=== PATIENT | female | born 1955 | race Caucasian/White ===

== ENCOUNTER 2017-04-09 07:56 | Day surgery (SDC) | payer OTHER ==
[2017-04-07 17:38] VITALS: BMI 44.6
[~2017-04-09 07:56] MED LIST: HYDROmorphone 1 MG/ML 1 ML SYRINGE IVP PRN; LACTATED RINGERS 1,000 ML IV SCH; MIDAZOLAM 2 MG/2 ML VIAL IV PRN; SCOPOLAMINE 1.5MG/72HR PATCH TRANSDERM ONE; ceFAZolin IN SWFI 2 GM/20 ML SYRINGE IVP ONE
[2017-04-09] MEDS ORDERED: LIDOCAINE 1% 20 ML VIAL (10MG/ML) FOR IV START INTRADERMA ONE (08:44)
[2017-04-09] MEDS: DEXAMETHASONE SOD PHOSPHATE 10 MG/ML 1 ML VIAL IV ONE ×2 (08:46→14:36)
[2017-04-09] MEDS: ONDANSETRON 4 MG/2 ML VIAL IVP ONE ×2 (08:47→14:36)
[2017-04-09] MEDS: HEPARIN SODIUM,PORCINE 5,000 UNIT/ML 1 ML VIAL SQ ONE ×2 (08:47→14:36)
[2017-04-09] MEDS ORDERED: BUPIVACAINE-EPI 0.5%-1:200,000 10 ML VIAL SQ ONE ×2 (09:05)
[2017-04-09] MEDS ORDERED: GLYCOPYRROLATE 0.2 MG/ML 2 ML VIAL ONE (09:13)
[2017-04-09] MEDS ORDERED: fentaNYL (PF) 50 MCG/ML 2 ML AMP ONE (09:13)
[2017-04-09] MEDS ORDERED: LIDOCAINE 1% INJ 10MG/ML (20 ML MDV) ONE (09:13)
[2017-04-09] MEDS ORDERED: ePHEDrine SULFATE/0.9% NACL/PF 50 MG/5 ML SYRINGE IV ONE (09:13)
[2017-04-09] MEDS ORDERED: MIDAZOLAM 2 MG/2 ML VIAL ONE (09:13)
[2017-04-09] MEDS ORDERED: ROCURONIUM BROMIDE 10 MG/ML 10 ML VIAL IV ONE (09:13)
[2017-04-09] MEDS ORDERED: PROPOFOL 10 MG/ML 20 ML VIAL IV ONE (09:13)
[2017-04-09] MEDS ORDERED: SUCCINYLCHOLINE CHLORIDE 100 MG/5 ML SYR IV ONE (09:13)
[2017-04-09] MEDS ORDERED: HYDROmorphone (PF) 1 MG/ML ONE (09:13)
[2017-04-09] MEDS ORDERED: NEOSTIGMINE 1 MG/ML 10 ML VIAL ONE (09:13)
[2017-04-09] MEDS ORDERED: KETAMINE 10 MG/ML 20 ML VIAL ONE (09:13)
[2017-04-09] MEDS ORDERED: KETOROLAC 30 MG/ML 1 ML VIAL ONE (09:13)
[2017-04-09] MEDS ORDERED: LACTATED RINGERS 1,000 ML IV ONE (10:00)
[2017-04-09] MEDS ORDERED: IOHEXOL 350 MG/ML 50ML BOTTLE INJ ONE (10:36)
[2017-04-09] MEDS ORDERED: HYDROmorphone 1 MG/ML 1 ML SYRINGE IVP PRN (12:10)
--- NOTE | 2017-04-09 12:28 | P.OP ---
Date of Procedure: 04/09/17 Preoperative Diagnosis: Chronic calculous cholecystitis Morbid obesity BMI 44.6 Postoperative Diagnosis: Same Procedure(s) Performed: Laparoscopic cholecystectomy Intraoperative cholangiogram Anesthesia: ANGELA Surgeon: Thea Morales Pathology: other Condition: stable Disposition: PACU Indications for Procedure: 61 years old female presents with right upper quadrant pain. Ultrasound showed gallstones. Informed consent obtained and she elected to undergo laparoscopic cholecystectomy possible open. The risks, benefits and potential complications including bleeding, infection, and bile duct injury were discussed and patient elected to undergo the procedure. Operative Findings: Acute on chronic cholecystitis Extensive scarring along the infundibulum of the gallbladder Cystic duct and cystic artery were identified and clipped Description of Procedure: The patient was brought to the operating room and placed in supine position with both arms out. General anesthesia with endotracheal intubation was performed as per anesthesia team. Chlorhexidine was used to prep the abdomen followed by application of sterile drapes. A timeout was performed to verify correct patient and correct procedure. Patient was confirmed to receive perioperative IV antibiotics , heparin 5000 units subcutaneous injection and bilateral SCDs were placed. A 5 mm skin incision was made below the left costal margin at the anterior axillary line. A Veress needle was inserted and pneumoperitoneum was established to a pressure of 15 mmHg. A 5 mm Optiview trocar was loaded on a 5 mm 30 laparoscope and the peritoneal cavity was entered under direct vision using the Optiview technique. Additional 5 mm trocar was placed in the supraumbilical location and two 5 mm trocars along the right subcostal margin. The left 5 mm trocar was upsized to 10mm. The patient was placed in reverse Trendelenburg with right side up. The fundus of the gallbladder was grasped with an atraumatic grasper and was retracted over the dome of the liver. The infundibulum was grasped with an atraumatic grasper and retracted towards the pelvis to expose the Calot's triangle. Additional 5 mm trocar was placed in the left upper quadrant to retract the stomach and improve exposure. Lateral and medial peritoneal attachment of the gallbladder bladder was dissected. There was dense additions between infundibulum of the gallbladder which was dissected and divided between clips. There was no definite lumen identified. Circumferential dissection was carried out around the cystic artery and the cystic duct to obtain adequate length for clip application. All the surrounding fibrofatty tissue were removed. Critical view was obtained with cystic duct and cystic artery as the only two structures entering the gallbladder. The gallbladder was clamped just proximal to the infundibulum. An intraoperative cholangiogram was attempted using balloon catheter device. An opening was made in the gallbladder close to the infundibulum and balloon catheter was inserted and inflated. Intra-Op cholangiogram was performed. There was gross spillage of contrast and proper anatomy could not be delineated. Hence the cholangiogram was limited and supported Two clips were applied on the patient's side and one on the specimen side on the cystic duct first followed by the cystic artery. Endoshears were used to divide the cystic duct and the cystic artery. The gallbladder was taken off the liver bed using a L-hook. It was placed in an endocatch specimen bag and removed through the 10mm port. The gallbladder was passed off as a specimen. The abdominal cavity was inspected. The clips on the cystic duct and cystic artery stump were intact and no bleeding noted from the liver bed. All the trocar sites were examined and no evidence of bleeding. The 10mm port site was closed with two transfascial sutures of 0 Vicryl using a Tripp Hilaria device. The pneumoperitoneum was evacuated and all the trocars were removed. Local anesthetic was infiltrated along the trocar sites and incisions were closed using 4-0 Monocryl followed by application of Dermabond skin glue. The sponge, instrument and needle count were correct x2. Patient was extubated and taken to post anesthesia care unit in stable condition.
--- NOTE | 2017-04-09 12:57 | FL ---
Fluoroscopy INDICATION: Pain FINDINGS: Fluoroscopy time: 58 seconds. Images obtained: 1. IMPRESSIONS: 1. Documentation of fluoroscopy.
[2017-04-09] MEDS: HEPARIN SODIUM,PORCINE 5,000 UNIT/ML 1 ML VIAL SQ SCH (16:41)
[2017-04-09] MEDS ORDERED: CALCIUM CARBONATE 500 MG CHEWABLE PO PRN (21:09)
[2017-04-09] MEDS: HYDROcodone/APAP 5-325MG 1 EACH TAB PO PRN (21:26)
[2017-04-09] MEDS: PANTOPRAZOLE 40 MG/10 ML VIAL IVP SCH (21:52)
[2017-04-10 00:23] VITALS: RESP 18
[2017-04-10] MEDS: HEPARIN SODIUM,PORCINE 5,000 UNIT/ML 1 ML VIAL SQ SCH (00:24)
[2017-04-10] MEDS: HYDROcodone/APAP 5-325MG 1 EACH TAB PO PRN (04:22)
--- NOTE | 2017-04-10 07:06 | P.PN ---
Subjective Progress Note Date: 04/10/17 Patient is a 61-year-old white female who is postop day #1 from a laparoscopic cholecystectomy. The patient at this time has no complaints. She has a J Luis -Dumont drain in place and this is serous drainage, 15 mL recorded. The patient has tolerated her diet. We are waiting for morning labs prior to discharge. Objective - Vital Signs Vital signs: Vital Signs Temp 97.1 F L 04/10/17 00:18 Pulse 86 04/10/17 00:18 Resp 18 04/10/17 00:18 BP 97/52 04/10/17 00:18 Pulse Ox 98 04/10/17 00:18 Intake & Output 04/09/17 04/10/17 04/10/17 18:59 06:59 18:59 Intake Total 2130 Output Total 10 15 Balance 2120 -15 Weight 117.934 kg Intake: IV 1650 Oral 480 Output: Drainage 15 Right Upper Abdomen 15 Estimated Blood Loss 10 Other: # Voids 1 - Constitutional General appearance: Present: morbidly obese - Respiratory Details: Slightly decreased breath sounds at bases bilaterally - Cardiovascular Heart sounds: normal: S1, S2 - Gastrointestinal Gastrointestinal Comment(s): Incisions clean and dry ELIS drain right upper quadrant serosanguineous drainage General gastrointestinal: Present: decreased bowel sounds - Psychiatric Psychiatric: Present: A&O x's 3, appropriate affect, intact judgment & insight Assessment and Plan Plan: Impression/plan: 1. 61 year-old white female postop day #1 laparoscopic cholecystectomy 2. Awaiting morning of laboratory studies prior to discharge 3. Probable discharge home later today
[2017-04-10 07:07] LABS: Basophils % (A) 0 %; CH 28.8; CHCM 31.8; Eosinophils % (A) 0 %; HCT 32.7 % (34.0-46.0); HGB 10.5 gm/dL (11.4-16.0); Luc # (Auto) 0.12; Luc % (Auto) 2; Lymphocytes # (A) 1.6 k/uL (1.0-4.8); Lymphocytes % (A) 21 %; MCH 29.2 pg (25.0-35.0); MCHC 32.1 g/dL (31.0-37.0); MCV 90.8 fL (80.0-100.0); Mean Platelet Volume 8.3; Monocytes # (A) 0.6 k/uL (0-1.0); Monocytes % (A) 8 %; Neutrophils # (A) 5.2 k/uL (1.3-7.7); Neutrophils % (A) 69 %; RBC 3.61 m/uL (3.80-5.40); RDW 13.5 % (11.5-15.5); WBC 7.6 k/uL (3.8-10.6); WBC (Perox) 7.85
--- NOTE | 2017-04-10 07:08 | P.DS ---
Providers Attending physician: Thea Morales Primary care physician: Prem Lee Plan - Discharge Summary Discharge Rx Participant: Yes New Discharge Prescriptions: New Docusate [Colace] 100 mg PO BID #30 capsule HYDROcodone/APAP 5-325MG [[place] 5-325] 1 tab PO Q4HR PRN #20 tab PRN Reason: Pain No Action Mirabegron [Myrbetriq] 25 mg PO DAILY HYDROcodone/APAP 5-325MG [[place] 5] 1 each PO Q6HR PRN PRN Reason: Pain Ezetimibe [Zetia] 10 mg PO HS Cholecalciferol [Vitamin D3] 1,000 unit PO DAILY@1200 Omeprazole [PriLOSEC] 20 mg PO AC-BRKFST Losartan Potassium [Cozaar] 100 mg PO DAILY Magnesium 500 mg PO DAILY Ibuprofen [Motrin] 800 mg PO TID PRN PRN Reason: Pain Ciprofloxacin HCl [Cipro] 250 mg PO TID PRN PRN Reason: RECURRENT UTI Gabapentin [Neurontin] 1 tab PO TID Acetaminophen/Diphenhydramine [Tylenol PM Extra Strength] 1 each PO HS PRN PRN Reason: Pain Discharge Medication List Cholecalciferol [Vitamin D3] 1,000 unit PO DAILY@1200 03/14/15 [History] Ezetimibe [Zetia] 10 mg PO HS 03/14/15 [History] HYDROcodone/APAP 5-325MG [[place] 5] 1 each PO Q6HR PRN 03/14/15 [History] Losartan Potassium [Cozaar] 100 mg PO DAILY 03/14/15 [History] Magnesium 500 mg PO DAILY 03/14/15 [History] Mirabegron [Myrbetriq] 25 mg PO DAILY 03/14/15 [History] Omeprazole [PriLOSEC] 20 mg PO AC-BRKFST 03/14/15 [History] Ciprofloxacin HCl [Cipro] 250 mg PO TID PRN 04/07/17 [History] Ibuprofen [Motrin] 800 mg PO TID PRN 04/07/17 [History] Acetaminophen/Diphenhydramine [Tylenol PM Extra Strength] 1 each PO HS PRN 04/09 [History] Docusate [Colace] 100 mg PO BID #30 capsule 04/09/17 [Rx] Gabapentin [Neurontin] 1 tab PO TID 04/09/17 [History] HYDROcodone/APAP 5-325MG [[place] 5-325] 1 tab PO Q4HR PRN #20 tab 04/09/17 [Rx] Follow up Appointment(s)/Referral(s): Thea Morales MD [STAFF PHYSICIAN] - 04/20/17 10:40 am Activity/Diet/Wound Care/Special Instructions: OK to shower . No soaking bath. No heavy lifting more than 10 lbs for 6 weeks post surgery. No driving while taking narcotics for pain. May use ice packs for local pain relief Take Motrin 400 mg po TID after meals if pain is not controlled Use incentive spireometry 10 times an hour while awake ELIS drain care teachings Get lab drawn one day before the office appointment - LFTs
[2017-04-10 07:22] LABS: Calcium 9.3 mg/dL (8.4-10.2); Potassium 4.2 mmol/L (3.5-5.1); Total Bilirubin 0.3 mg/dL (0.2-1.3)
[2017-04-10 09:10] VITALS: BP 103/62; PULSE 82; TEMP 97.5
[2017-04-10] MEDS: PANTOPRAZOLE 40 MG/10 ML VIAL IVP SCH (09:10)
== END 2017-04-10 09:38 | disposition home or self-care (01) ==
LOC: OR 07:56 → 6PED 11:52 → OR 04-10 09:38
PROVIDERS: ATTEND Surgery
DX: K80.10 Calculus of gallbladder with chronic cholecystitis without obstruction (principal); K21.9 Gastro-esophageal reflux disease without esophagitis; E66.01 Morbid (severe) obesity due to excess calories; Z68.41 Body mass index [BMI] 40.0-44.9, adult; Z80.0 Family history of malignant neoplasm of digestive organs; E78.5 Hyperlipidemia, unspecified; F41.9 Anxiety disorder, unspecified; I10 Essential (primary) hypertension; J44.9 Chronic obstructive pulmonary disease, unspecified; Z87.891 Personal history of nicotine dependence; M19.90 Unspecified osteoarthritis, unspecified site; L65.9 Nonscarring hair loss, unspecified; Z79.2 Long term (current) use of antibiotics; Z79.899 Other long term (current) drug therapy; Z88.8 Allergy status to other drugs, medicaments and biological substances
CPT/HCPCS: 93005; 88304; 80053; 85025; 74300; 47563; J2250; J1644 ×2; J1100; J2710; J0690; J2405; J2001; J3010; J1885; J1170; J0330; J2704; Q9967; C9113

== ENCOUNTER → 2017-04-26 | Outpatient (CLI) | payer OTHER ==
[2017-04-26 15:04] LABS: CH 29.2; CHCM 32.7; HCT 32.6 % (34.0-46.0); HDW 2.45; HGB 10.8 gm/dL (11.4-16.0); MCH 29.7 pg (25.0-35.0); MCV 89.9 fL (80.0-100.0); Mean Platelet Volume 8.1; RBC 3.63 m/uL (3.80-5.40); RDW 13.9 % (11.5-15.5); WBC 6.3 k/uL (3.8-10.6)
[2017-04-26 15:32] LABS: Bilirubin, Delta 0.2 mg/dL (0.0-0.2); Calcium 9.7 mg/dL (8.4-10.2); Total Bilirubin 0.4 mg/dL (0.2-1.3); Total Protein 6.6 g/dL (6.3-8.2)
== END | disposition home or self-care (01) ==
LOC: LABWHC1 14:39
PROVIDERS: ATTEND Surgery
DX: D64.9 Anemia, unspecified (principal)
CPT/HCPCS: 36415; 80053; 82248; 85027

== ENCOUNTER 2017-09-29 08:49 | Day surgery (SDC) | payer OTHER ==
[2017-09-28 08:21] VITALS: BMI 48.0
--- NOTE | 2017-09-29 08:41 | P.GSHP ---
History of Present Illness H&P Date: 09/29/17 CHIEF COMPLAINT: Colon screen HISTORY OF PRESENT ILLNESS: The patient is a 61-year-old female who presents for colon screen. Lower endoscopy was offered for further evaluation and management. PAST MEDICAL HISTORY: Please see list. PAST SURGICAL HISTORY: Please see list. MEDICATIONS: Please see list. ALLERGIES: Please see list. SOCIAL HISTORY: No illicit drug use FAMILY HISTORY: No reports of Crohn disease or ulcerative colitis. REVIEW OF ORGAN SYSTEMS: CONSTITUTIONAL: No reports of fevers or chills. PHYSICAL EXAM: VITAL SIGNS: Stable GENERAL: Well-developed pleasant in no acute distress. HEENT: No scleral icterus. Extraocular movements grossly intact. Moist buccal mucosa. NECK: Supple without lymphadenopathy. CHEST: Unlabored respirations. Equal bilateral excursions. CARDIOVASCULAR: Regular rate and rhythm. Distal 2+ pulses. ABDOMEN: Soft, nontender, nondistended. MUSCULOSKELETAL: No clubbing, cyanosis, or edema. ASSESSMENT: 1. Colon screen. PLAN: 1. Recommend proceeding with a lower endoscopy Past Medical History Past Medical History: Fibromyalgia, GERD/Reflux, Hyperlipidemia, Hypertension, Mitral Valve Prolapse (MVP), Osteoarthritis (OA) Additional Past Medical History / Comment(s): hx. recurrent UTI's, hx heart murmer, hx MPV "years ago","weat urethra" History of Any Multi-Drug Resistant Organisms: None Reported Past Surgical History: Cholecystectomy, Orthopedic Surgery Additional Past Surgical History / Comment(s): left knee arthroscopy, pain clinic procedures Past Anesthesia/Blood Transfusion Reactions: Postoperative Nausea & Vomiting ( PONV) Smoking Status: Former smoker - Past Family History Mother Family Medical History: Cancer Medications and Allergies Home Medications Medication Instructions Recorded Confirmed Type Cholecalciferol [Vitamin D3] 1,000 unit PO DAILY 03/14/15 09/28/17 History Ezetimibe [Zetia] 10 mg PO HS 03/14/15 09/28/17 History Losartan Potassium [Cozaar] 100 mg PO DAILY 03/14/15 09/28/17 History Mirabegron [Myrbetriq] 25 mg PO DAILY 03/14/15 09/28/17 History Omeprazole [PriLOSEC] 20 mg PO AC-BRKFST 03/14/15 09/28/17 History Ciprofloxacin HCl [Cipro] 250 mg PO TID PRN 04/07/17 09/28/17 History Ibuprofen [Motrin] 800 mg PO TID PRN 04/07/17 09/28/17 History Gabapentin [Neurontin] 1 tab PO TID PRN 04/09/17 09/28/17 History Allergies Allergy/AdvReac Type Severity Reaction Status Date / Time niacin AdvReac Severe " FELT Verified 09/28/17 08:12 LIKE SKIN WAS ON FIRE Abulnww-Osg-Trh Reductase AdvReac Mild muscle Verified 09/28/17 08:12 Inhibitor cramps
[~2017-09-29 08:49] MED LIST changes: -HYDROmorphone 1 MG/ML 1 ML SYRINGE IVP PRN; +LIDOCAINE 1% 20 ML VIAL (10MG/ML) FOR IV START INTRADERMA PRN; -MIDAZOLAM 2 MG/2 ML VIAL IV PRN; -SCOPOLAMINE 1.5MG/72HR PATCH TRANSDERM ONE; -ceFAZolin IN SWFI 2 GM/20 ML SYRINGE IVP ONE
[2017-09-29 09:34] VITALS: RESP 16; TEMP 97.8
[2017-09-29] MEDS ORDERED: ONDANSETRON 4 MG/2 ML VIAL IVP ONE (09:58)
[2017-09-29] MEDS ORDERED: PROPOFOL 10 MG/ML 20 ML VIAL IV ONE (10:02)
[2017-09-29] MEDS ORDERED: LIDOCAINE 1% INJ 10MG/ML (20 ML MDV) ONE (10:02)
--- NOTE | 2017-09-29 10:20 | P.PCN ---
Date of Procedure: 09/29/17 Description of Procedure: PREOPERATIVE DIAGNOSIS: Colonoscopy screening. Family history of colon cancer POSTOPERATIVE DIAGNOSIS: Colonoscopy screening. Diverticulosis, sigmoid Family history colon cancer OPERATION: Colonoscopy to the ileocecal valve and appendiceal orifice. SURGEON: Lorraine Reyes MD. ANESTHESIA: MAC. INDICATIONS: The patient is a 61-year-old female who presents for colonoscopy screening. Last colonoscopy was over 14 years ago. Benefits and risks were described and informed consent was obtained. DESCRIPTION OF PROCEDURE: The patient had undergone Gatorade, MiraLAX and Dulcolax prep. She had been brought into the operating room and laid in the left lateral decubitus position. After adequate intravenous sedation, the rectum was examined with 2% lidocaine jelly. No external hemorrhoids were encountered. The rectal tone was within normal limits. No lesions were palpated in the rectal vault. An Olympus colonoscope was advanced until the ileocecal valve and appendiceal orifice were clearly viewed. The prep was excellent with clear visualization of the mucosal folds. The scope was removed with visualization of each mucosal fold. Sigmoid diverticulosis diverticulosis was encountered. No colonic polyps were found. No evidence of focal colitis was found. Retroflexion of the scope demonstrated no internal hemorrhoids. The colon was desufflated. The patient had tolerated the procedure well. Withdrawal time was over 6 minutes. FINDINGS: No internal hemorrhoids. No external prolapsed hemorrhoids. No arteriovenous malformations. No adenomatous polyps. No focal colitis. Severe sigmoid diverticulosis. RECOMMENDATIONS: Lower endoscopy in 5 years per screening guidelines, 2022 Plan - Discharge Summary New Discharge Prescriptions: No Action Mirabegron [Myrbetriq] 25 mg PO DAILY Ezetimibe [Zetia] 10 mg PO HS Cholecalciferol [Vitamin D3] 1,000 unit PO DAILY Omeprazole [PriLOSEC] 20 mg PO AC-BRKFST Losartan Potassium [Cozaar] 100 mg PO DAILY Ibuprofen [Motrin] 800 mg PO TID PRN PRN Reason: Pain Ciprofloxacin HCl [Cipro] 250 mg PO TID PRN PRN Reason: RECURRENT UTI Gabapentin [Neurontin] 1 tab PO TID PRN PRN Reason: sciatic nerve pain Discharge Medication List Cholecalciferol [Vitamin D3] 1,000 unit PO DAILY 03/14/15 [History] Ezetimibe [Zetia] 10 mg PO HS 03/14/15 [History] Losartan Potassium [Cozaar] 100 mg PO DAILY 03/14/15 [History] Mirabegron [Myrbetriq] 25 mg PO DAILY 03/14/15 [History] Omeprazole [PriLOSEC] 20 mg PO AC-BRKFST 03/14/15 [History] Ciprofloxacin HCl [Cipro] 250 mg PO TID PRN 04/07/17 [History] Ibuprofen [Motrin] 800 mg PO TID PRN 04/07/17 [History] Gabapentin [Neurontin] 1 tab PO TID PRN 04/09/17 [History]
[2017-09-29 10:45] VITALS: BP 107/60; PULSE 85
== END 2017-09-29 10:53 | disposition home or self-care (01) ==
LOC: ORWHC2ENDO 08:49
PROVIDERS: ATTEND Surgery Plastic and Reconstructive Surgery
DX: Z12.11 Encounter for screening for malignant neoplasm of colon (principal); K57.30 Diverticulosis of large intestine without perforation or abscess without bleeding; K21.9 Gastro-esophageal reflux disease without esophagitis; Z80.0 Family history of malignant neoplasm of digestive organs; I10 Essential (primary) hypertension; E78.5 Hyperlipidemia, unspecified; M79.7 Fibromyalgia; E66.01 Morbid (severe) obesity due to excess calories; Z68.42 Body mass index [BMI] 45.0-49.9, adult; I34.1 Nonrheumatic mitral (valve) prolapse; M19.90 Unspecified osteoarthritis, unspecified site; Z87.891 Personal history of nicotine dependence; Z79.899 Other long term (current) drug therapy; Z88.8 Allergy status to other drugs, medicaments and biological substances
CPT/HCPCS: J2405; J2001; J2704; G0105; 45378

== ENCOUNTER → 2018-03-15 | Outpatient (CLI) | payer OTHER | END | disposition home or self-care (01) | LOC: LABPAT 13:02 | PROVIDERS: ATTEND Orthopaedic Surgery | DX: Z01.812 Encounter for preprocedural laboratory examination (principal) | CPT/HCPCS: 87070 ==

== ENCOUNTER → 2018-04-07 | Outpatient (CLI) | payer OTHER ==
--- NOTE | 2018-04-07 11:02 | XR ---
EXAMINATION TYPE: XR chest 2V DATE OF EXAM: 04/07/2018 COMPARISON: NONE HISTORY: Bronchopneumonia 4 days ago. Presurgical study. TECHNIQUE: Frontal and lateral views of the chest are obtained. FINDINGS: There is no focal air space opacity, pleural effusion, or pneumothorax seen. The cardiac silhouette size is mildly enlarged. The osseous structures are intact. IMPRESSION: Mild cardiomegaly without suspicious acute pulmonary process.
== END | disposition home or self-care (01) ==
LOC: RADXRMAIN 10:40
PROVIDERS: ATTEND Family Medicine
DX: Z01.818 Encounter for other preprocedural examination (principal); I51.7 Cardiomegaly
CPT/HCPCS: 71046

== ENCOUNTER → 2019-03-13 | Outpatient (CLI) | payer MEDICARE, OTHER | END | disposition home or self-care (01) | LOC: LABWHC1 08:11 | PROVIDERS: ATTEND Orthopaedic Surgery | DX: Z01.812 Encounter for preprocedural laboratory examination (principal); M16.11 Unilateral primary osteoarthritis, right hip | CPT/HCPCS: 87070 ==

== ENCOUNTER 2019-03-21 07:22 | Inpatient (IN) | payer MEDICARE, OTHER ==
--- NOTE | 2019-03-20 09:37 | HP ---
HISTORY AND PHYSICAL CHIEF COMPLAINT: Right hip pain. HISTORY OF PRESENT ILLNESS: Patient is a 63-year-old retired female who presents with progressive right hip pain secondary to osteoarthrosis despite conservative measures. She notes it limits her activities. She does use a cane. PAST MEDICAL HISTORY: Significant for arthritis, reflux disease, hypercholesterolemia, renal disease, COPD. PAST SURGICAL HISTORY: Significant for previous left total hip. CURRENT MEDICATIONS: 1. Losartan. 2. Zetia. 3. Tylenol. She has allergies to STATINS. FAMILY HISTORY: Significant for cancer and heart disease. SOCIAL HISTORY: Negative for current tobacco or alcohol use. REVIEW OF SYSTEMS: A 16-point review of systems otherwise reviewed and is noncontributory. PHYSICAL EXAMINATION: Patient is approximately 5 foot 4, 250 pounds of endomorphic habitus. HEENT exam is nonfocal. Neck is supple. She has passive motion of the right hip, flexion 70 degrees, external rotation with hip flex 40 degrees, internal rotation -10 degrees with pain. She has approximately 0.5 cm shortening of the right lower extremity compared to the left. Her distal neurovascular exam appears intact in the right lower extremity. AP of the pelvis obtained in the office show severe right hip osteoarthrosis with bone- on-bone changes. IMPRESSION: 1. Right hip severe osteoarthrosis. 2. Obesity. RECOMMENDATIONS: I talked to the patient at length regarding her condition and treatment options. At this point, she is quite symptomatic and opts to proceed with surgery. We will plan to proceed with right total hip arthroplasty utilizing a lateral approach. Risks and benefits were discussed at length in layman's terms. We will institute DVT prophylaxis postoperatively. The patient underwent preoperative medical evaluation by Dr. Lee. MMODL / IJN: [id number] /
[~2019-03-21 07:22] MED LIST changes: +ACETAMINOPHEN TAB 500 MG TAB PO ONE; +DEXAMETHASONE SOD PHOSPHATE 10 MG/ML 1 ML VIAL IV ONE; -LACTATED RINGERS 1,000 ML IV SCH; +MELOXICAM 7.5 MG TAB PO ONE; +ONDANSETRON 4 MG/2 ML VIAL IVP ONE; +TRANEXAMIC ACID 1,000 MG in SODIUM CHLORIDE 0.9% 100 ML IVPB ONE; +ceFAZolin 3 GM in SODIUM CHLORIDE 0.9% 100 ML IVPB ONE; +fentaNYL (PF) 50 MCG/ML 2 ML AMP IV PRN
[2019-03-21] MEDS: LACTATED RINGERS 1,000 ML IV SCH ×2 (08:08→15:10)
[2019-03-21] MEDS ORDERED: HYDROmorphone (PF) 1 MG/ML ONE (08:37)
[2019-03-21] MEDS ORDERED: PROPOFOL 10 MG/ML 20 ML VIAL IV ONE (08:37)
[2019-03-21] MEDS ORDERED: TRANEXAMIC ACID 1,000 MG/10 ML VIAL ONE (08:37)
[2019-03-21] MEDS ORDERED: fentaNYL (PF) 50 MCG/ML 2 ML AMP ONE (08:37)
[2019-03-21] MEDS ORDERED: SODIUM CHLORIDE 0.9% 100 ML BAG ONE (08:37)
[2019-03-21] MEDS ORDERED: KETAMINE 10 MG/ML 20 ML VIAL ONE (08:37)
[2019-03-21] MEDS ORDERED: MIDAZOLAM 2 MG/2 ML VIAL ONE (08:37)
[2019-03-21] MEDS ORDERED: PHENYLEPHRINE-0.9% NACL SYG 1 MG/10 ML SYRINGE ONE (08:37)
[2019-03-21] MEDS ORDERED: ceFAZolin 3,000 MG in SODIUM CHLORIDE 0.9% IRRIGATIO 3,000 ML IRRIGATION ONE (09:21)
[2019-03-21] MEDS ORDERED: LACTATED RINGERS 1,000 ML IV ONE (09:52)
[2019-03-21] MEDS ORDERED: MAGNESIUM HYDROXIDE 2,400 MG/10 ML CUP PO PRN (10:29)
[2019-03-21] MEDS ORDERED: ONDANSETRON 4 MG/2 ML VIAL IVP PRN (10:29)
[2019-03-21] MEDS ORDERED: NALOXONE 0.4 MG/ML 1 ML VIAL IV PRN (10:29)
[2019-03-21] MEDS ORDERED: HYDROmorphone 0.5 MG/0.5 ML SYRINGE IVP PRN (10:29)
[2019-03-21] MEDS ORDERED: HYDROcodone/APAP 5-325MG 1 EACH TAB PO PRN (10:29)
[2019-03-21] MEDS ORDERED: ACETAMINOPHEN TAB 325 MG TAB PO PRN (10:29)
--- NOTE | 2019-03-21 10:54 | P.OP ---
Date of Procedure: 03/21/19 Preoperative Diagnosis: Right hip severe osteoarthrosis Postoperative Diagnosis: Same Procedure(s) Performed: Right total hip arthroplastypress-fitlateral approach Implants: Depuy Corail size 10 standard press-fit collared femoral stem, 36 mm +1-1/2 cobalt chrome femoral head, 54 mm [place] acetabular shell with neutral polyethylene liner. Anesthesia: spinal Surgeon: Migel Camargo Supervisor Lending Activities #1: Piyush Bowman Estimated Blood Loss (ml): 200 Pathology: other (Femoral head) Condition: stable Disposition: PACU Indications for Procedure: The patient's a 63-year-old female who presents with progressive right hip pain secondary to osteoarthrosis despite conservative measures. A discussion of the risks and benefits of operative intervention versus continued conservative measures was made with the patient. She opted to proceed with surgery. Operative risks to include infection, neurovascular injury, development of blood clots, possible fracture, possible leg length discrepancy, possible instability and need for subsequent procedures was discussed. Informed consent was obtained. Operative Findings: As below Description of Procedure: The patient was brought to the operating room, and after induction of spinal anesthesia was placed in a lateral decubitus position. The bony prominences were appropriately padded. The pelvis was stable perpendicular to the floor with a pegboard. The right lower extremity was prepped and draped in normal fashion. A 12 cm incision was then made centered over the greater trochanter extending superiorly to level the ASIS and distally in line with the femoral shaft. The skin and subcutaneous tissues were divided sharply. Electrocautery was used for hemostasis. The fascia ronald and gluteus ayla fascia was split in line with the skin incision. The muscle fibers were bluntly dissected proximally. A self-retaining retractor was placed. The anterior and posterior margins of the gluteus medius muscles identified and the anterior two thirds was detached from the greater trochanter with electrocautery. The gluteus minimus tendon was identified and detached in a similar fashion. A wide capsulotomy was performed. The femoral neck fracture was identified in the lower neck cut was made approximately 1 1/2 cm above the level of the lesser trochanter with a sagittal saw at a 45 to the shaft. The head was then extracted with a corkscrew. Attention was then paid towards preparing the acetabular. Anterior and posterior retractors were placed. The remaining capsular labral tissues debrided sharply clearly defining the acetabular margins. Began reaming with a 47 mm reamer taking care to initially medialize, then reaming at 45 of abduction and 20 of anteversion. Sequential reaming is performed up to 53 mm. This was down to bleeding bony surface. A trial 54 mm acetabular shell was inserted at 45 of abduction and 20 of anteversion. This was fully seated. There was good rim fit and stability. I did place a 6.5 mm x 25 mm cancellus screw posterior superior with good purchase. A neutral polyethylene liner was then impacted. Care taken to avoid any soft tissue interposition. Attention was then paid towards preparing the proximal femur. A box chisel was used to open the metaphyseal region. A canal finder was used to find the femoral canal. Sequential broaching was performed up to a size 10. This is placed in 15 of anteversion with the leg perpendicular floor judging off the trans-epicondylar axis. There is good rotational stability. A calcar mill was used to fashion the medial calcar. A trial standard neck along with a 36 mm +1.5 trial head was placed. The hip was gently reduced. It was taken through range of motion. I felt to be stable in flexion and extension with internal and external rotation. I felt there was adequate sikh of soft tissue tension. The hip was gently dislocated. The trial components removed. Pulsatile lavage was utilized. The final size 10 standard collared femoral stem was inserted again with the leg perpendicular to the floor in 15 of anteversion. Again there was good rotational stability. A 36 mm + 1.5 cobalt chrome femoral head was gently impacted. The hip was gently reduced. Again it was taken through motion and felt to be stable in flexion and extension with internal and external rotation. Pulsatile lavage was again utilized. With the leg in abduction the gluteus minimus and medius tendons reattached to the greater trochanter with #2 Ethibond suture. There was minimal drainage therefore a deep drain was not placed. The fascia ronald and gluteus ayla fascia was closed with #2 Ethibond suture. The subcutaneous tissues were reapproximated interrupted 2-0 Vicryl sutures. The skin was reapproximated with 3-0 subcuticular strata fix suture. Skin tape and adhesive was applied. A sterile dressing was applied. The patient was awoken from sedation and transferred to recovery room in good condition. Blood loss was estimated 200 mL. No complications were incurred. Sponge and needle counts were correct in the case. Doug LEHMAN assisted during the major composes case to include exposure, implantation, and closure.
[2019-03-21] MEDS: HYDROmorphone 0.5 MG/0.5 ML SYRINGE IVP PRN ×2 (11:09→12:36)
--- NOTE | 2019-03-21 11:14 | FL ---
EXAMINATION TYPE: FL guidance operating room DATE OF EXAM: 03/21/2019 CLINICAL HISTORY: Flouro documentation TECHNIQUE: Fluoroscopy. COMPARISON: None. FINDINGS: Fluoroscopic guidance was provided during procedure performed by Dr. Camargo. A total of 6 seconds of fluoroscopic time was utilized during the procedure and 1 spot image was acquired. IMPRESSION: As Above.
--- NOTE | 2019-03-21 11:20 | XR ---
EXAMINATION TYPE: XR Hip Limited RT DATE OF EXAM: 03/21/2019 CLINICAL HISTORY: Right hip pain and osteoarthritis. TECHNIQUE: Single AP portable view of right hip is obtained immediately postoperatively. COMPARISON: None. FINDINGS: Metallic hardware from right hip arthroplasty is seen and appears satisfactory in alignment and position. There is evidence of recent surgery with subcutaneous gas noted laterally. IMPRESSION: Metallic hardware from right hip arthroplasty is satisfactory in position.
[2019-03-21] MEDS: traMADol 50 MG TAB PO SCH ×3 (14:47→20:51)
[2019-03-21] MEDS: ceFAZolin 3 GM in SODIUM CHLORIDE 0.9% 100 ML IVPB SCH (17:35)
[2019-03-21] MEDS: HYDROcodone/APAP 5-325MG 1 EACH TAB PO PRN (17:35)
[2019-03-21 18:08] VITALS: BMI 45.1
--- NOTE | 2019-03-21 18:43 | P.CONS ---
History of Present Illness - Reason for Consult Consult date: 03/21/19 Medical management Requesting physician: Migel Camargo - Chief Complaint Right hip surgery - History of Present Illness consultation: This is a pleasant 63-year-old patient of Dr. Lee. Chronic stable medical conditions include GERD, hyperlipidemia, hypertension, mitral valve prolapse. Patient has undergone right total hip was positive. Postprocedure some pain is present. No nausea vomiting. No chest pain no shortness of breath. Sitting up in the bed. Review of systems: GEN.: Tired EYES: None HEENT: None NECK: None RESPIRATORY: None CARDIOVASCULAR: None GASTROINTESTINAL: None GENITOURINARY: Urinary incontinence MUSCULOSKELETAL: Pain in different joints LYMPHATICS: None HEMATOLOGICAL: None PSYCHIATRY: None NEUROLOGICAL: None Social history: This is a significant other. No smoking or alcohol. Physical examination: VITAL SIGNS: 97.4, 92, 17, 94 x 64, 92% room air GENERAL: BMI 44.9, sitting upon a chair, comfortable. EYES: Pupils equal. Conjunctiva normal. HEENT: External appearance of nose and ears normal, oral cavity grossly normal. NECK: JVD not raised; masses not palpable. HEART: First and second heart sounds are normal; no edema. LUNGS: Respiratory rate normal; clear to auscultation. ABDOMEN: Soft, nontender, liver spleen not palpable, no masses palpable. PSYCH: Alert and oriented x3; mood and affect normal. NEUROLOGICAL: Cranial nerves grossly intact; no facial asymmetry, power and sensation grossly intact. LYMPHATICS: No lymph nodes palpable in the axilla and neck MUSCULOSKELETAL: Dressing over the right hip, evidence of OA in the hands Labs: None INVESTIGATIONS, reviewed in the clinical context: -Right total hip arthroplasty -Primary osteoarthritis -Morbid obesity BMI 44.9 -GERD -Hyperlipidemia -Essential hypertension -Mitral valve prolapse -Chronic urinary stress incontinence Plan: Care was discussed with the patient. Home medications resumed. Patient is on Xarelto for DVT prophylaxis per Dr. Parisi. Pain control is in place. Care was discussed with the patient. Question were answered Thank you Dr. Parisi Past Medical History Past Medical History: GERD/Reflux, Hyperlipidemia, Hypertension, Mitral Valve Prolapse (MVP), Osteoarthritis (OA), Pneumonia Additional Past Medical History / Comment(s): hx. recurrent UTI's, hx heart murmur, hx MVP years ago but told doesn't have anymore, hx. pneumonia 2018, just starting antibiotic for UTI History of Any Multi-Drug Resistant Organisms: None Reported Past Surgical History: Cholecystectomy, Joint Replacement, Orthopedic Surgery Additional Past Surgical History / Comment(s): left knee arthroscopy, pain cl inic procedures, left hip replaced Past Anesthesia/Blood Transfusion Reactions: Postoperative Nausea & Vomiting (PONV) Past Psychological History: No Psychological Hx Reported Smoking Status: Former smoker Past Alcohol Use History: None Reported Additional Past Alcohol Use History / Comment(s): quit smoking 1985, smoked for 15 yrs., 1 pack/week Past Drug Use History: None Reported - Past Family History Father Additional Family Medical History / Comment(s): of [place] Mother Family Medical History: Cancer Medications and Allergies Home Medications Medication Instructions Recorded Confirmed Type Cholecalciferol [Vitamin D3] 2,000 unit PO DAILY 03/14/15 03/15/19 History Ezetimibe [Zetia] 10 mg PO HS 03/14/15 03/21/19 History Losartan Potassium [Cozaar] 100 mg PO DAILY 03/14/15 03/21/19 History Mirabegron [Myrbetriq] 25 mg PO DAILY 03/14/15 03/21/19 History Acetaminophen [Tylenol Arthritis] 1,300 mg PO BID PRN 04/06/18 03/21/19 History HYDROcodone/APAP 5-325MG [Bow 1 tab PO Q6HR PRN 04/06/18 03/21/19 History 5-325] amLODIPine BESYLATE 5 mg PO DAILY 04/06/18 03/21/19 History Budesonide-Formot 160-4.5 Mcg 2 puff INHALATION BID PRN 03/15/19 03/21/19 History [Symbicort 160-4.5 Mcg Inhaler] Famotidine [Pepcid] 20 mg PO DAILY 03/15/19 03/21/19 History Solifenacin Succinate [Vesicare] 10 mg PO DAILY 03/15/19 03/21/19 History Nitrofurantoin Macrocrystal 100 mg PO BID 03/17/19 03/21/19 History [Macrodantin] Allergies Allergy/AdvReac Type Severity Reaction Status Date / Time BURKE Inhibitors Allergy headache Verified 03/21/19 07:38 niacin AdvReac Severe " FELT Verified 10/22/19 07:38 LIKE SKIN WAS ON FIRE Iyqduyi-Rbj-Hih Reductase AdvReac Mild Itching Verified 03/21/19 07:38 Inhibitor Physical Exam Vitals: Vital Signs Temp Pulse Pulse Resp BP Pulse Ox 03/21/19 16:15 97.4 F L 92 17 94/64 92 L 03/21/19 15:00 81 120/74 03/21/19 14:45 80 123/75 03/21/19 14:30 85 127/78 03/21/19 14:15 98 F 86 14 133/75 95 03/21/19 13:30 87 16 125/70 98 03/21/19 13:03 77 16 115/47 98 03/21/19 12:30 78 16 136/79 98 03/21/19 12:15 78 16 134/63 98 03/21/19 12:00 77 16 155/75 97 03/21/19 11:46 74 16 146/74 97 03/21/19 11:31 74 16 114/80 97 03/21/19 11:15 72 16 119/58 97 03/21/19 11:04 69 16 104/49 97 03/21/19 10:47 97.9 F 73 12 93/52 97 03/21/19 07:58 97.4 F L 87 16 125/59 95 Intake and Output 03/21/19 03/21/19 03/21/19 06:59 14:59 22:59 Intake Total 1851 Output Total 250 Balance 1601 Intake: IV 1851 Output: Estimated Blood Loss 250 Other: # Voids 1
[2019-03-21] MEDS ORDERED: SENNOSIDES-DOCUSATE SODIUM 1 EACH TAB PO SCH (21:00)
[2019-03-21] MEDS ORDERED: EZETIMIBE 10 MG TAB PO SCH (21:00)
[2019-03-21] MEDS: SYMBICORT 160-4.5 MCG INHALER INHALATION SCH (21:16)
[2019-03-22] MEDS: HYDROcodone/APAP 5-325MG 1 EACH TAB PO PRN ×3 (00:11→12:52)
[2019-03-22] MEDS: ceFAZolin 3 GM in SODIUM CHLORIDE 0.9% 100 ML IVPB SCH ×2 (00:12→07:46)
[2019-03-22] MEDS: LACTATED RINGERS 1,000 ML IV SCH ×2 (02:09→05:30)
[2019-03-22 07:28] VITALS: BP 132/77; PULSE 83; RESP 12; TEMP 98.3
[2019-03-22] MEDS: SYMBICORT 160-4.5 MCG INHALER INHALATION SCH (07:42)
[2019-03-22] MEDS: traMADol 50 MG TAB PO SCH ×2 (07:45→12:49)
[2019-03-22] MEDS ORDERED: RIVAROXABAN 10 MG TAB PO SCH (09:00)
[2019-03-22] MEDS ORDERED: FAMOTIDINE 20 MG TAB PO SCH (09:00)
[2019-03-22] MEDS ORDERED: LOSARTAN 50 MG TAB PO SCH (09:00)
[2019-03-22] MEDS ORDERED: (Mirabegron [Myrbetriq] 25 MG) PO SCH (09:00)
[2019-03-22] MEDS ORDERED: CHOLECALCIFEROL 1,000 UNIT TAB PO SCH (09:00)
[2019-03-22] MEDS ORDERED: amLODIPine 5 MG TAB PO SCH (09:00)
[2019-03-22 09:32] LABS: Basophils % (A) 0 %; Eosinophils % (A) 0 %; HCT 36.7 % (34.0-46.0); Lymphocytes # (A) 1.5 k/uL (1.0-4.8); Lymphocytes % (A) 12 %; MCH 29.9 pg (25.0-35.0); MCHC 32.8 g/dL (31.0-37.0); MCV 91.3 fL (80.0-100.0); Mean Platelet Volume 6.8; Monocytes # (A) 1.2 k/uL (0-1.0); Monocytes % (A) 9 %; Neutrophils # (A) 9.8 k/uL (1.3-7.7); Neutrophils % (A) 76 %; Platelet Count 349 k/uL (150-450); RBC 4.03 m/uL (3.80-5.40); RDW 12.9 % (11.5-15.5); WBC 12.8 k/uL (3.8-10.6)
--- NOTE | 2019-03-22 11:32 | P.PN ---
Subjective Progress Note Date: 03/22/19 Principal diagnosis: Status post right total hip arthroplasty Patient evaluated at bedside, she is resting comfortably. Her pain is well controlled. She's done very well with physical therapy. She denies any chest pain, shortness of breath, nausea or vomiting. Objective - Vital Signs Vital signs: Vital Signs Temp 98.3 F 03/22/19 07:00 Pulse 83 03/22/19 07:00 Resp 12 03/22/19 07:00 BP 132/77 03/22/19 07:00 Pulse Ox 96 03/22/19 07:00 Intake & Output 03/21/19 03/22/19 03/22/19 18:59 06:59 18:59 Intake Total 1901 Output Total 250 Balance 1651 Intake: IV 1851 Oral 50 Output: Estimated Blood Loss 250 Other: Voiding Method Toilet # Voids 1 1 - Exam Right lower extremity: Incision is clean, dry, and intact. The exofin fusion tape is in good condition. There is minimal soft tissue swelling and ecchymosis surrounding the medial and lateral aspects of the incision. Calf is soft, no tenderness with palpation. Plantar flexion, dorsiflexion, EHL, FHL are intact. Sensory exam to light touch throughout the extremity is intact, dorsal pedis pulses 2+. - Labs CBC & Chem 7: 03/22/19 08:27 Labs: Abnormal Lab Results - Last 24 Hours (Table) 03/22/19 Range/Units 08:27 WBC 12.8 H (3.8-10.6) k/uL Neutrophils # 9.8 H (1.3-7.7) k/uL Monocytes # 1.2 H (0-1.0) k/uL Assessment and Plan Plan: Assessment: Postop day 1 status post right total hip arthroplasty Plan: Pain control, oral medication for discharge GI and DVT prophylaxis, Xarelto 10 mg 28 days Wound care management discussed Home therapy and nursing after discharge Medical recommendations Discharged home today Time with Patient: Less than 30
--- NOTE | 2019-03-22 11:35 | P.DS ---
Providers Date of admission: 03/21/19 07:22 Expected date of discharge: 03/22/19 Attending physician: Migel Camargo Primary care physician: Prem Lee [facility] Course: Date of admission: 03/21/2019 Date of discharge: 03/22/2019 Admission diagnosis: Status post right total hip arthroplasty Discharge diagnosis: Same Attending physician: Dr. Camargo Surgical procedures: Right total hip arthroplasty Brief history: Patient is a 63-year-old female with a history of progressive primary right hip osteoarthritis. At this point patient has failed conservative treatment measures and has opted to proceed with a elective right total hip arthroplasty. Hospital course: Details of patient's surgery can be found in operative report. Patient tolerated the procedure well and was subsequently transported to orthopedic floor. Patient's orthopeidc and medical care was provided daily. Patient had daily laboratory tests performed for evaluation of overall blood counts. Patient had daily physical therapy to include strengthening range of motion as well as education with walker ambulation. Patient was treated with Xarelto for their postoperative DVT prophylaxis during their inpatient stay. Patient was noted to have a relatively uneventful postoperative course. Patient reported satisfactory pain control with oral pain medications by postoperative day 0. Patient showed satisfactory progress with physical therapy. Patient moved steadily through the program and had no difficulty meeting the goals by postoperative day 1. Given patient's otherwise satisfactory course and having met physical therapy goals, plan is to discharge patient home on postoperative day 1. Discharge condition/disposition: Patient will be discharged home in stable condition. Discharge medications: Instructions are given on resumption of patient's normal daily medications per primary care recommendation, in addition patient will be prescribed [place] 5 mg/325 mg, tramadol 50 mg, Colace 100 mg, Xarelto 10 mg. Discharge instructions: 1. Wound care and infection precautions, keep incision dry and covered while showering, no lotions, creams, moisturizers. No soaking, tubs, pools, hottubs. Do not scrub over the incision. 2. Weight-bear as tolerated with walker / cane until follow-up. 3. Ice and elevate when necessary. Do not exceed 20 minutes per hour with ice pack. 4. Utilize compression sleeve until seen at first follow up appointment. 5. Visiting nursing care. 6. Home physical therapy. 7. Pain meds and anticoagulants per prescription. 8. Pain medication has potential to cause constipation. Increase oral fluid and fiber intake. Contact primary care provider if you have not had a bowel movement within 48 hours after discharge 9. No anti-inflammatory medication until discussed at first post operative visit, this including Motrin, Aleve, Mobic, Diclofenac. 10. Follow up in office at 2 weeks postop with Doug Bowman PA-C 11. Follow up with your primary care doctor 7-10 days after discharge. 12. Contact [facility] with any questions, . Procedures: Right total hip arthroplasty Patient Condition at Discharge: Good Plan - Discharge Summary Discharge Rx Participant: Yes New Discharge Prescriptions: New Docusate [Colace] 100 mg PO DAILY #30 capsule Hydrocodone/Acetaminophen [[place] 5-325] 1 - 2 each PO Q6HR PRN #56 tab PRN Reason: Pain traMADol HCl [Ultram] 50 mg PO Q6H PRN #28 tab PRN Reason: Pain Rivaroxaban [Xarelto] 10 mg PO DAILY #28 tab No Action Mirabegron [Myrbetriq] 25 mg PO DAILY Ezetimibe [Zetia] 10 mg PO HS Cholecalciferol [Vitamin D3] 2,000 unit PO DAILY Losartan Potassium [Cozaar] 100 mg PO DAILY amLODIPine BESYLATE 5 mg PO DAILY Acetaminophen [Tylenol Arthritis] 1,300 mg PO BID PRN PRN Reason: Pain Famotidine [Pepcid] 20 mg PO DAILY Budesonide-Formot 160-4.5 Mcg [Symbicort 160-4.5 Mcg Inhaler] 2 puff INHALATION BID PRN PRN Reason: Dyspnea Solifenacin Succinate [Vesicare] 10 mg PO DAILY Nitrofurantoin Macrocrystal [Macrodantin] 100 mg PO BID Discharge Medication List Cholecalciferol [Vitamin D3] 2,000 unit PO DAILY 03/14/15 [History] Ezetimibe [Zetia] 10 mg PO HS 03/14/15 [History] Losartan Potassium [Cozaar] 100 mg PO DAILY 03/14/15 [History] Mirabegron [Myrbetriq] 25 mg PO DAILY 03/14/15 [History] Acetaminophen [Tylenol Arthritis] 1,300 mg PO BID PRN 04/06/18 [History] amLODIPine BESYLATE 5 mg PO DAILY 04/06/18 [History] Budesonide-Formot 160-4.5 Mcg [Symbicort 160-4.5 Mcg Inhaler] 2 puff INHALATION BID PRN 03/15/19 [History] Famotidine [Pepcid] 20 mg PO DAILY 03/15/19 [History] Solifenacin Succinate [Vesicare] 10 mg PO DAILY 03/15/19 [History] Nitrofurantoin Macrocrystal [Macrodantin] 100 mg PO BID 03/17/19 [History] Docusate [Colace] 100 mg PO DAILY #30 capsule 03/22/19 [Rx] Hydrocodone/Acetaminophen [[place] 5-325] 1 - 2 each PO Q6HR PRN #56 tab 03/22/19 [Rx] Rivaroxaban [Xarelto] 10 mg PO DAILY #28 tab 03/22/19 [Rx] traMADol HCl [Ultram] 50 mg PO Q6H PRN #28 tab 03/22/19 [Rx] Follow up Appointment(s)/Referral(s): [facility], [NON-STAFF] - As Needed Prem Lee DO [Primary Care Provider] - 03/27/19 3:30 pm Piyush Bowman PAC [PHYSICIAN TRUCK [employer]] - 04/05/19 3:30 pm Activity/Diet/Wound Care/Special Instructions: Orthopedic Discharge Instructions: 1. Wound care and infection precautions, keep incision dry and covered while showering, no lotions, creams, moisturizers. No soaking, pools, hot tubs. Do not scrub over incision. 2. Weight-bear as tolerated with walker / cane until follow-up. 3. Ice and elevate when necessary. Do not exceed 20 minutes per hour with ice pack. 4. Utilize compression sleeve until seen at first follow up appointment. 5. Pain meds and anticoagulants per prescription. 6. Pain medication has potential to cause constipation. Increase oral fluid and fiber intake. Contact primary care provider if you have not had a bowel movement within 48 hours after discharge. 7. No anti-inflammatory medication until discussed at first post operative visit, this including Motrin, Aleve, Mobic, Diclofenac. 8. Follow up in office at 2 weeks postop with Doug Bowman PA-C 9. Follow up with your primary care doctor 7-10 days after discharge. 10. Contact [facility] with any questions, . Discharge Disposition: HOME WITH HOME HEALTH SERVICES
--- NOTE | 2019-03-23 00:38 | P.PN ---
Progress Note - Text Progress Note Date: 03/22/19 consultation: This is a pleasant 63-year-old patient of Dr. Lee. Chronic stable medical conditions include GERD, hyperlipidemia, hypertension, mitral valve prolapse. Patient has undergone right total hip was positive. Postprocedure some pain is present. No nausea vomiting. No chest pain no shortness of breath. Sitting up in the bed. Today-feeling better. No nausea vomiting. Did tolerate her breakfast. Did work with therapy. Pain is controlled. Review of systems: Was done for constitutional, cardiovascular, GI, pulmonary. relevant finding as above Current medications are reviewed in today's electronic records Physical examination: VITAL SIGNS: 98.3, 83, 20, 132 personally 7, 96% room air GENERAL:sitting up in a chair, comfortable. EYES: Pupils equal. Conjunctiva normal. HEENT: External appearance of nose and ears normal, oral cavity grossly normal. NECK: JVD not raised; masses not palpable. HEART: First and second heart sounds are normal; no edema. LUNGS: Respiratory rate normal; clear to auscultation. ABDOMEN: Soft, nontender, liver spleen not palpable, no masses palpable. PSYCH: Alert and oriented x3; mood and affect normal. MUSCULOSKELETAL: Dressing over the right hip, evidence of OA in the hands Labs: white count 12.8 hemoglobin 12 INVESTIGATIONS, reviewed in the clinical context: -Right total hip arthroplasty -Primary osteoarthritis -Morbid obesity BMI 44.9 -GERD -Hyperlipidemia -Essential hypertension -Mitral valve prolapse -Chronic urinary stress incontinence -Mild leukocytosis likely reactive from surgery. no evidence of infection Plan: stable. Continue current medication treatment plan. Thank you Dr. Parisi
== END 2019-03-22 14:32 | disposition home health service (06) | DRG 470 ==
LOC: 2ORMAIN 07:22 → 4SSUR 13:07
PROVIDERS: ADMIT Orthopaedic Surgery; ATTEND Orthopaedic Surgery
PROC: 0SR904A Replacement of Right Hip Joint with Ceramic on Polyethylene Synthetic Substitute, Uncemented, Open Approach (ICD-10-PCS; principal; 2019-03-21 08:20)
DX: M16.11 Unilateral primary osteoarthritis, right hip (principal); Z68.41 Body mass index [BMI] 40.0-44.9, adult; E66.01 Morbid (severe) obesity due to excess calories; J44.9 Chronic obstructive pulmonary disease, unspecified; I25.10 Atherosclerotic heart disease of native coronary artery without angina pectoris; D72.829 Elevated white blood cell count, unspecified; M79.7 Fibromyalgia; M51.36 Other intervertebral disc degeneration, lumbar region; N39.3 Stress incontinence (female) (male); K21.9 Gastro-esophageal reflux disease without esophagitis; E78.5 Hyperlipidemia, unspecified; I10 Essential (primary) hypertension; I34.1 Nonrheumatic mitral (valve) prolapse; E78.00 Pure hypercholesterolemia, unspecified; Z79.51 Long term (current) use of inhaled steroids; Z79.899 Other long term (current) drug therapy; Z96.642 Presence of left artificial hip joint; Z87.01 Personal history of pneumonia (recurrent); Z87.891 Personal history of nicotine dependence; Z87.440 Personal history of urinary (tract) infections; Z90.49 Acquired absence of other specified parts of digestive tract; Z87.448 Personal history of other diseases of urinary system; Z88.8 Allergy status to other drugs, medicaments and biological substances; Z80.9 Family history of malignant neoplasm, unspecified; Z82.49 Family history of ischemic heart disease and other diseases of the circulatory system
CPT/HCPCS: 73501; 85025; 86850; 86900; 86901; 88300; 94640

== ENCOUNTER → 2020-06-25 | Outpatient (CLI) | payer MEDICARE, OTHER ==
[2020-06-25 10:12] LABS: HCT 40.6 % (34.0-46.0); HGB 13.3 gm/dL (11.4-16.0); MCH 29.1 pg (25.0-35.0); MCHC 32.8 g/dL (31.0-37.0); MCV 88.7 fL (80.0-100.0); Mean Platelet Volume 7.8; Platelet Count 317 k/uL (150-450); RBC 4.58 m/uL (3.80-5.40); RDW 13.3 % (11.5-15.5); WBC 6.6 k/uL (3.8-10.6)
[2020-06-25 10:24] LABS: Appearance,Urine Clear (Clear); Bilirubin,Urine Negative (Negative); Blood,Urine Negative (Negative); Color,Urine Yellow; Glucose,Urine (UA) Negative (Negative); Ketones,Urine Negative (Negative); Leukocyte Esterase,Urine Small (Negative); Nitrite,Urine Negative (Negative); PH, Urine 5.5 (5.0-8.0); Protein,Urine Negative (Negative); Specific Gravity,Urine 1.021 (1.001-1.035); Urobilinogen,Urine <2.0 mg/dL (<2.0); WBC,Urine 1 /hpf (0-5)
[2020-06-25 10:25] LABS: Hyaline Casts,Urine 1 /lpf (0-2); Mucus,Urine Occasional /hpf; RBC,Urine <1 /hpf (0-5); Squamous Epithelial Cell,Urine 1 /hpf (0-4)
[2020-06-25 16:43] LABS: % Iron Saturation 22.08 (12.00-45.00); African American GFR (CKD) 41.6 (60.0-200.0); Albumin 4.4 g/dL (3.80-4.90); Albumin/Globulin Ratio 1.91 (1.60-3.17); Anion Gap 10.1 mmol/L (4.00-12.00); Calcium 10.5 mg/dL (8.7-10.3); Carbon Dioxide 26.9 mmol/L (21.6-31.8); Globulin 2.3 g/dL (1.6-3.3); Magnesium 1.8 mg/dL (1.5-2.4); Non-African American GFR(CKD) 35.9 (60.0-200.0); Phosphorus 3.8 mg/dL (2.4-5.1); Potassium 4.6 mmol/L (3.5-5.5); Total Bilirubin 0.5 mg/dL (0.2-1.2); Total Protein 6.7 g/dL (6.2-8.2); Uric Acid 6.9 mg/dL (2.9-7.7)
[2020-06-25 16:51] LABS: Ferritin 28.8 ng/mL (10.0-291.0)
== END | disposition home or self-care (01) ==
LOC: LABWHC1 08:59
PROVIDERS: ATTEND Internal Medicine
DX: N39.0 Urinary tract infection, site not specified (principal); N18.30 Chronic kidney disease, stage 3 unspecified; M10.9 Gout, unspecified; E55.9 Vitamin D deficiency, unspecified; N25.81 Secondary hyperparathyroidism of renal origin; D63.1 Anemia in chronic kidney disease
CPT/HCPCS: 36415; 80053; 81001; 82306; 82728; 83540; 83550; 83735; 83970; 84100; 84550; 85027

== ENCOUNTER → 2022-01-28 | Outpatient (CLI) | payer MEDICARE, OTHER ==
[2022-01-28 20:21] LABS: Chol/HDL Ratio 4.86 Ratio; LDL Cholesterol,Calculated 114.9 mg/dL (0.0-131.0)
== END | disposition home or self-care (01) ==
LOC: LABWHC1 13:29
PROVIDERS: ATTEND Family Medicine
DX: I10 Essential (primary) hypertension (principal); R60.0 Localized edema
CPT/HCPCS: 36415; 80061; 84439; 84443

== ENCOUNTER → 2022-01-28 | Outpatient (CLI) | payer MEDICARE, OTHER ==
--- NOTE | 2022-01-28 14:29 | XR ---
EXAMINATION TYPE: XR chest 2V DATE OF EXAM: 01/28/2022 COMPARISON: 04/07/2018 HISTORY: Shortness of breath TECHNIQUE: Frontal and lateral views of the chest are obtained. FINDINGS: Scattered senescent parenchymal changes noted. Hyperinflation compatible with COPD. No evidence for infiltrate. No evidence for atelectasis. Heart size is stable. Mediastinal structures are stable and grossly unremarkable. No evidence for hilar prominence. Degenerative changes dorsal spine. IMPRESSION: 1. No evidence for acute pulmonary disease.
== END | disposition home or self-care (01) ==
LOC: RADXRMAIN 13:59
PROVIDERS: ATTEND Family Medicine
DX: U07.1 COVID-19 (principal)
CPT/HCPCS: 71046

== ENCOUNTER → 2023-09-08 | Day surgery (SDC) | payer MEDICARE, OTHER ==
[2023-09-06 10:07] VITALS: BMI 45.3
[~2023-09-08] MED LIST changes: -ACETAMINOPHEN TAB 500 MG TAB PO ONE; -DEXAMETHASONE SOD PHOSPHATE 10 MG/ML 1 ML VIAL IV ONE; +LACTATED RINGERS 1,000 ML IV SCH; -LIDOCAINE 1% 20 ML VIAL (10MG/ML) FOR IV START INTRADERMA PRN; +LIDOCAINE 1% INJ 10MG/ML (20 ML MDV) ONE; -MELOXICAM 7.5 MG TAB PO ONE; -ONDANSETRON 4 MG/2 ML VIAL IVP ONE; +ONDANSETRON 4 MG/2 ML VIAL ONE; +PROPOFOL 10 MG/ML 20 ML VIAL IV ONE; -TRANEXAMIC ACID 1,000 MG in SODIUM CHLORIDE 0.9% 100 ML IVPB ONE; -ceFAZolin 3 GM in SODIUM CHLORIDE 0.9% 100 ML IVPB ONE; -fentaNYL (PF) 50 MCG/ML 2 ML AMP IV PRN
--- NOTE | 2023-09-08 07:56 | P.GSHP ---
History of Present Illness H&P Date: 09/08/23 CHIEF COMPLAINT: Colon screen HISTORY OF PRESENT ILLNESS: The patient is a 67-year-old female who presents for colon screen. Lower endoscopy was offered for further evaluation and management. PAST MEDICAL HISTORY: Please see list. PAST SURGICAL HISTORY: Please see list. MEDICATIONS: Please see list. ALLERGIES: Please see list. SOCIAL HISTORY: No illicit drug use FAMILY HISTORY: No reports of Crohn disease or ulcerative colitis. REVIEW OF ORGAN SYSTEMS: CONSTITUTIONAL: No reports of fevers or chills. PHYSICAL EXAM: VITAL SIGNS: Stable GENERAL: Well-developed pleasant in no acute distress. HEENT: No scleral icterus. Extraocular movements grossly intact. Moist buccal mucosa. NECK: Supple without lymphadenopathy. CHEST: Unlabored respirations. Equal bilateral excursions. CARDIOVASCULAR: Regular rate and rhythm. Distal 2+ pulses. ABDOMEN: Soft, nontender, nondistended. MUSCULOSKELETAL: No clubbing, cyanosis, or edema. ASSESSMENT: 1. Colon screen. PLAN: 1. Recommend proceeding with a lower endoscopy Past Medical History Past Medical History: Fibromyalgia, GERD/Reflux, Hyperlipidemia, Hypertension, Pneumonia Additional Past Medical History / Comment(s): hx. recurrent UTI's, hx heart murm er ,current rx for pneumonia and ear infection(Dr Camargo aware per pt), arthritis, kidney disease stage 3b History of Any Multi-Drug Resistant Organisms: None Reported Past Surgical History: Cholecystectomy, Orthopedic Surgery Additional Past Surgical History / Comment(s): left knee arthroscopy, pain clinic procedures, both hip replacements, colonoscopy Past Anesthesia/Blood Transfusion Reactions: Postoperative Nausea & Vomiting (PONV) Additional Past Anesthesia/Blood Transfusion Reaction / Comment(s): no blood transfusion Smoking Status: Former smoker - Past Family History Father Additional Family Medical History / Comment(s): of [place] Mother Family Medical History: Cancer Additional Family Medical History / Comment(s): pancreatic liver Medications and Allergies Home Medications Medication Instructions Recorded Confirmed Type Ezetimibe [Zetia] 10 mg PO HS 03/14/15 09/06/23 History Losartan Potassium [Cozaar] 100 mg PO DAILY 03/14/15 09/06/23 History Mirabegron [Myrbetriq] 50 mg PO DAILY 03/14/15 09/06/23 History Famotidine [Pepcid] 40 mg PO DAILY 03/15/19 09/06/23 History Solifenacin Succinate [Vesicare] 5 mg PO DAILY 03/15/19 09/06/23 History Ciprofloxacin HCl [Cipro] 250 mg PO BID 09/06/23 09/06/23 History Fluticasone Propion/Salmeterol 1 inhalation PO BID 09/06/23 09/06/23 History [Wixela 250-50 Inhub] Loratadine [Claritin] 10 mg PO DAILY 09/06/23 09/06/23 History amLODIPine [Norvasc] 5 mg PO DAILY 09/06/23 09/06/23 History calcitrioL 0.25 mcg PO MOWE 09/06/23 09/06/23 History Allergies Allergy/AdvReac Type Severity Reaction Status Date / Time BURKE Inhibitors Allergy headache Verified 09/06/23 09:37 niacin AdvReac Severe " FELT Verified 09/06/23 09:37 LIKE SKIN WAS ON FIRE [id number]-[id number]-NrL Reductase AdvReac Mild Itching Verified 09/06/23 09:37 Inhibitor [Iizskfm-Kmk-Mji Reductase Inhibitor]
[2023-09-08] MEDS: LACTATED RINGERS 1,000 ML IV SCH (10:34)
[2023-09-08] MEDS: ONDANSETRON 4 MG/2 ML VIAL IVP ONE (10:57)
[2023-09-08 11:38] VITALS: RESP 18; TEMP 97.8
--- NOTE | 2023-09-08 12:03 | P.PCN ---
Date of Procedure: 09/08/23 Description of Procedure: PREOPERATIVE DIAGNOSIS: Abnormal Cologuard POSTOPERATIVE DIAGNOSIS: Abnormal Cologuard Severe sigmoid diverticulosis Partial large bowel obstruction, distal descending colon OPERATION: Colonoscopy to the descending colon. SURGEON: Lorraine Reyes MD. ANESTHESIA: MAC. INDICATIONS: The patient is a 67-year-old female who presents abnormal Cologuard testing. She presents for diagnostic colonoscopy. Benefits and risks were described and informed consent was obtained. DESCRIPTION OF PROCEDURE: The patient had undergone GoLytely bowel prep. He had been brought into the endoscopy room and laid in the left lateral decubitus position. After adequate intravenous sedation, the rectum was examined with 2% lidocaine jelly. External hemorrhoids were encountered. The rectal tone was within normal limits. No lesions were palpated in the rectal vault. An Olympus colonoscope was advanced along the rectum to obstruction at the descending colon. The lesion was circumferential, polypoid, fungating and bleeding. Area of necrosis was found along the central portion of the lesion. Despite maneuvers, the pediatric colonoscope could not advance beyond the stenosis. Internal hemorrhoids, grade 2 was found. The colonoscope was removed. FINDINGS: Aronchik preparation quality scale 1 (1-5) External prolapsed hemorrhoids. Scope advanced to the descending colon Large bowel obstruction due to obstruction descending colon Severe sigmoid diverticulosis RECOMMENDATIONS: Completion barium enema due to history of abnormal Cologuard Plan - Discharge Summary Discharge Rx Participant: No New Discharge Prescriptions: Continue Mirabegron [Myrbetriq] 50 mg PO DAILY Ezetimibe [Zetia] 10 mg PO HS Losartan Potassium [Cozaar] 100 mg PO DAILY Famotidine [Pepcid] 40 mg PO DAILY Solifenacin Succinate [Vesicare] 5 mg PO DAILY amLODIPine [Norvasc] 5 mg PO DAILY Ciprofloxacin HCl [Cipro] 250 mg PO BID calcitrioL 0.25 mcg PO MOWE Loratadine [Claritin] 10 mg PO DAILY Fluticasone Propion/Salmeterol [Wixela 250-50 Inhub] 1 inhalation PO BID Discharge Medication List Ezetimibe [Zetia] 10 mg PO HS 03/14/15 [History] Losartan Potassium [Cozaar] 100 mg PO DAILY 03/14/15 [History] Mirabegron [Myrbetriq] 50 mg PO DAILY 03/14/15 [History] Famotidine [Pepcid] 40 mg PO DAILY 03/15/19 [History] Solifenacin Succinate [Vesicare] 5 mg PO DAILY 03/15/19 [History] Ciprofloxacin HCl [Cipro] 250 mg PO BID 09/06/23 [History] Fluticasone Propion/Salmeterol [Wixela 250-50 Inhub] 1 inhalation PO BID 09/06/23 [History] Loratadine [Claritin] 10 mg PO DAILY 09/06/23 [History] amLODIPine [Norvasc] 5 mg PO DAILY 09/06/23 [History] calcitrioL 0.25 mcg PO MOWE 09/06/23 [History] Follow up Appointment(s)/Referral(s): Lorraine Reyes MD [STAFF PHYSICIAN] - 09/14/23 10:00 am Patient Instructions/Handouts: *Surgery [facility] - (Anesthesia) Discharge Instructions Outpatient Surgery, Barium Enema (DC), Colonoscopy (DC) Discharge Disposition: HOME SELF-CARE
[2023-09-08 12:23] VITALS: BP 90/51; PULSE 83
--- NOTE | 2023-09-08 14:30 | FL ---
EXAMINATION TYPE: FL barium enema DATE OF EXAM: 09/08/2023 COMPARISON: NONE HISTORY: Failed colonoscopy TECHNIQUE: A single contrast barium enema study is performed. A total of 1 minute 56 seconds of flu oroscopic time was utilized during procedure and 32 images obtained. Total dose area product (DAP) i n uGy*m?, mGy*cm? (or similar): Not provided. FINDINGS: Supply Chain Assistant view of the abdomen shows overall non-obstructive bowel gas pattern. Postcholecystec kyra clips. Degenerative changes spine. Postsurgical changes bilateral hip. A limited single contrast exam was performed. There is redundancy of the right colon. There is mild to moderate changes of diverticulosis most pronounced involving the sigmoid colon. Ther e is no obvious annular constricting lesion. Assessment for small polypoid images limited due to comp lete bowel prep\retained fluid. IMPRESSION: 1. Limited single contrast barium enema demonstrates mild to moderate diverticulosis. No evidence of obstruction or annular
== END | disposition home or self-care (01) ==
LOC: ORWHC2ENDO 09:52
PROVIDERS: ATTEND Surgery Plastic and Reconstructive Surgery
DX: K56.600 Partial intestinal obstruction, unspecified as to cause (principal); K57.30 Diverticulosis of large intestine without perforation or abscess without bleeding; K21.9 Gastro-esophageal reflux disease without esophagitis; I10 Essential (primary) hypertension; E78.5 Hyperlipidemia, unspecified; M79.7 Fibromyalgia; Z79.51 Long term (current) use of inhaled steroids; Z87.891 Personal history of nicotine dependence; Z88.8 Allergy status to other drugs, medicaments and biological substances; Z90.49 Acquired absence of other specified parts of digestive tract; Z79.899 Other long term (current) drug therapy
CPT/HCPCS: 74270; 45378; J2405; J2001; J2704

== ENCOUNTER → 2024-07-19 | Outpatient (CLI) | payer MEDICARE, OTHER ==
[2024-07-19 16:32] VITALS: BP 157/72; PULSE 89; RESP 16; TEMP 97.5; BMI 48.9
--- NOTE | 2024-09-09 16:02 | P.BASOAP ---
Subjective Progress Note Date: 07/19/24 DATE OF SERVICE: 07/19/24 CHIEF COMPLAINT: Morbid obesity HISTORY OF PRESENT ILLNESS: Lorraine Kerr is a 68-year-old female who comes with lifelong morbid obesity. As result of morbid obesity, she has osteoarthritis, hypertensive heart disease, hyperlipidemia, osteoarthritis of the hips and knees. He has severe gastroesophageal reflux disease. She completed upper endoscopy. She is under medical supervised weight loss. She is pending dietary surveillance class. She presents for assessment of gastric bypass. She reports control of symptoms with omeprazole. At height of 5 feet 4.25 inches, her ideal body weight is 144 pounds. She comes in 287 pounds from 285 pounds, 2 weeks ago. She has gained 2 pounds in 2 weeks. Her body mass index is 48.9. She is 143 pounds overweight. PAST MEDICAL HISTORY: 1. Morbid obesity due to excess calories 2. Body mass index of 48.9 3. Fibromyalgia 4. Gastroesophageal reflux disease 5. Hyperlipidemia 6. Hypertensive heart disease 7. Heart murmur 8. Recurrent pneumonia 9. Chronic kidney disease stage III 10. Postop nausea vomiting 11. Recurrent urinary tract infection 12. Osteoporosis PAST SURGICAL HISTORY: 1. Cholecystectomy 2. Left knee arthroscopy 3. Bilateral hip replacement 4. Colonoscopy 5. Upper endoscopy HOME MEDICATIONS: Home Medications Medication Instructions Recorded Confirmed Ezetimibe [Zetia] 10 mg PO HS 03/14/15 07/19/24 Losartan Potassium [Cozaar] 100 mg PO DAILY 03/14/15 07/19/24 Mirabegron [Myrbetriq] 50 mg PO HS 03/14/15 07/19/24 Solifenacin Succinate [Vesicare] 5 mg PO HS 03/15/19 07/19/24 Ciprofloxacin HCl [Cipro] 250 mg PO BID PRN 09/06/23 07/19/24 Loratadine [Claritin] 10 mg PO DAILY 09/06/23 07/19/24 amLODIPine [Norvasc] 5 mg PO DAILY 09/06/23 07/19/24 calcitrioL 0.25 mcg PO SUWE 09/06/23 07/19/24 Amoxicillin 4 cap PO DIRECTED 07/05/24 07/19/24 Famotidine [Pepcid] 1 tab PO DAILY 07/19/24 07/19/24 Previous Rx's Medication Instructions Recorded Omeprazole [PriLOSEC] 40 mg PO DAILY #14 cap 07/19/24 ALLERGIES: Allergies Allergy/AdvReac Type Severity Reaction Status Date / Time BURKE Inhibitors Allergy headache Verified 07/19/24 16:26 niacin AdvReac Severe " FELT Verified 07/19/24 16:26 LIKE SKIN WAS ON FIRE [id number] Reductase AdvReac Mild Itching Verified 07/19/24 16:26 Inhibitor [[id number] Reductase Inhibitor] SOCIAL HISTORY: Past tobacco use. FAMILY HISTORY: No family history of ulcerative colitis disease or Crohn's disease. Family history of morbid obesity. No lupus in the family. No reports of stomach or esophageal cancer. REVIEW OF ORGAN SYSTEMS: CONSTITUTIONAL: At height of 5 feet 4.25 inches, her ideal body weight is 144 pounds. She comes in 285 pounds. Her body mass index is 48.5. She is 141 pounds overweight. HEENT: Denies any active troubles with vision or hearing. ENDOCRINE: Denies diabetes. Denies hypothyroidism. CARDIOVASCULAR: Denies past reports of palpitations or heart attacks or chest pain. RESPIRATORY: Denies shortness of breath. GASTROINTESTINAL: Denies any bright red blood per rectum. Has gastroesophageal reflux disease. MUSCULOSKELETAL: Has lower back pain and joint pain. Has osteoarthritis of the knees. NEURO: No headaches. No seizure disorders. PSYCH: Denies depression. No suicidal ideation. RHEUMATOLOGIC: No lupus. No rheumatoid arthritis. HEMATOLOGIC: Denies any abnormal bleeding or bruising. No personal history of DVTs. SKIN: Has rash. No skin cancer. PHYSICAL EXAM: VITAL SIGNS: Height 5 foot 4.25 inches, weight 287 pounds. BMI 48.5 Vital Signs Temp 97.5 F L 07/19/24 16:25 Pulse 89 07/19/24 16:25 Resp 16 07/19/24 16:25 BP 157/72 07/19/24 16:25 Pulse Ox FiO2 GENERAL: Well-developed in no acute distress. HEENT: No scleral icterus. Extraocular movements grossly intact. Hears conversational speech. No nasal drainage. NECK: Supple without lymphadenopathy. CHEST: Nonlabored respirations with equal bilateral excursions. CARDIOVASCULAR: Regular rate and regular rhythm. Distal 2+ pulses. ABDOMEN: Obese, soft, nontender, nondistended. MUSCULOSKELETAL: No clubbing, cyanosis. NEURO: No focal or lateralizing signs. Cranial nerves 2 through 12 grossly within normal limits. PSYCH: Appropriate affect. Alert and oriented to person, place and time. SKIN: Good skin turgor. Well perfused. LABS: Reviewed. Triglycerides elevated. Cholesterol elevated. Vitamin B12 low. PTH elevated. EKG: From 2017 demonstrates incomplete right bundle branch block EGD FINDINGS: Squamocolumnar junction 36 cm from the incisors. Diaphragmatic hiatus at 40 cm. Hiatal hernia, 4 cm Hill grade 2 lower esophageal valve. LA grade C erosive esophagitis with biopsies obtained. Biopsies obtained of the duodenum. Acute on chronic gastritis with bleeding with biopsies obtained. Final Pathologic Diagnosis A. DUODENUM, BIOPSY: Benign small bowel mucosa with intact villous architecture, negative for histopathologic abnormality. B. GASTRIC ANTRUM, BIOPSY: Mild chronic gastritis. Helicobacter pylori organisms are not identified on routine H+E sections. C. ESOPHAGUS, BIOPSY: Acute erosive and chronic esophagitis with scattered intramucosal eosinophils consistent with reflux esophagitis. Negative for intestinal metaplasia. ASSESSMENT: 1. Morbid obesity due to excess calories 2. Body mass index of 48.9 3. Fibromyalgia 4. Gastroesophageal reflux disease 5. Hyperlipidemia 6. Hypertensive heart disease 7. Heart murmur 8. Recurrent pneumonia 9. Chronic kidney disease stage III 10. Postop nausea vomiting 11. Recurrent urinary tract infection 12. Osteoporosis 13. Diaphragmatic hiatal hernia 14. Chronic gastritis 15. Abnormal EKG PLAN: 1. Recommend dietary surveillance and counseling. Patient seeking sleeve gastrectomy as reflux disease controlled with omeprazole. 2. Will need updated EKG due to prior abnormal EKG 3. Recommend cardiac assessment 4. Goal protein intake 90 g daily 5. Recommend food diary journal 6. She is elevated risk for complications 7. Will need psychological assessment Objective - Vital Signs Vital signs: Vital Signs Temp 97.5 F L 07/19/24 16:25 Pulse 89 07/19/24 16:25 Resp 16 07/19/24 16:25 BP 157/72 07/19/24 16:25 Pulse Ox FiO2 Assessment/Plan Plan: Date: 07/19/24 Initial Weight: Initial BMI: Current Weight: 130.181 kg Current BMI: 48.9 Type of Surgery: Total Volume in Band: Previous Volume: Volume Removed: Volume Added: Band Size:
== END ==
LOC: BARWHC3 15:28
PROVIDERS: ATTEND Surgery Plastic and Reconstructive Surgery
DX: E66.01 Morbid (severe) obesity due to excess calories (principal); Z68.42 Body mass index [BMI] 45.0-49.9, adult; Z87.891 Personal history of nicotine dependence; Z88.8 Allergy status to other drugs, medicaments and biological substances
CPT/HCPCS: 99211

== ENCOUNTER → 2024-07-24 | Outpatient (CLI) | payer MEDICARE, OTHER ==
[2024-07-24 13:30] VITALS: BMI 49.2
== END ==
LOC: BARWHC3 12:47
PROVIDERS: ATTEND Surgery Plastic and Reconstructive Surgery
DX: E66.01 Morbid (severe) obesity due to excess calories (principal); Z71.3 Dietary counseling and surveillance; Z88.8 Allergy status to other drugs, medicaments and biological substances; Z87.891 Personal history of nicotine dependence
CPT/HCPCS: 97804